=== PATIENT | female | born 1985 | race Two or more races ===

== ENCOUNTER 2016-06-17 11:03 | Emergency (ER) | payer SELFPAY ==
[~2016-06-17] VITALS: Ht 154.9 cm; Wt 59.0 kg
[2016-06-17 11:06] VITALS: BP 99/64
[2016-06-17 13:05] VITALS: BP 99/64
--- NOTE | 2016-06-20 07:52 | Emergency Room Report ---
History of Present Illness General Chief Complaint: General Complaint Source: EMS Present Illness HPI 31YOF BIBEMS for acute ETOH intoxication. Atraumatic. No drugs. Patient was placed in back room and eloped before I could do a full HPI and PE with her. Allergies: Coded Allergies: UNABLE TO ASSESS (Unverified , 06/17/16) Patient History Past Medical History: unable to obtain Past Surgical History: unable to obtain Pertinent Family History: unable to obtain Social History: Reports: alcohol use Nursing Documentation-PMH Past Medical History: No Stated History Review of Systems All Other Systems: limited - Patient eloped Physical Exam Vital Signs Date Time Temp Pulse Resp B/P Pulse Ox O2 Delivery O2 Flow Rate FiO2 06/17/16 10:56 98.1 78 16 99/64 100 Room Air Sp02 EP Interpretation: reviewed, abnormal General Appearance: normal inspection, well appearing, no apparent distress, alert, other Other Organ Systems Unable to do rest of PE as patient eloped Medical Decision Making Diagnostic Impression: Primary Impression: Encounter for generalized patient complaints Last Vital Signs Date Time Temp Pulse Resp B/P Pulse Ox O2 Delivery O2 Flow Rate FiO2 06/17/16 13:05 98.1 16 99/64 100 Room Air 06/17/16 10:56 78 Disposition: ELOPED Condition: Unknown Referrals: NOT CHOSEN IPA/,REFERRING (PCP) WES MARTINO M.D. June 20, 2016 07:52
== END 2016-06-17 13:07 | disposition left against medical advice (07) ==
LOC: EDBD 11:03 → EMR 12:08
DX: Z00.00 Encounter for general adult medical examination without abnormal findings (principal); Z53.21 Procedure and treatment not carried out due to patient leaving prior to being seen by health care provider
CPT/HCPCS: 99283